=== PATIENT | female | born 1990 | race African-American/Black ===

== ENCOUNTER 2016-12-01 21:56 | Emergency (ER) | payer MEDICAID ==
[~2016-12-01] VITALS: Ht 170.2 cm; Wt 91.0 kg
[~2016-12-01 21:56] MED LIST: AZIT250T6 PO; IBUP-1509 PO
[2016-12-02] MEDS ORDERED: ONDANSETRON HCL 4MG/2ML VIAL IV STA (01:35)
[2016-12-02] MEDS ORDERED: SODIUM CHLORIDE 0.9% 1,000 ML IV ONE (01:35)
[2016-12-02] MEDS ORDERED: KETOROLAC 30MG/ML VIAL IV ONE (01:45)
[2016-12-02 01:55] LABS: CLARITY URINE CLEAR (CLEAR); COLOR URINE YELLOW (YELLOW); GLUCOSE URINE NEGATIVE (NEGATIVE); KETONES URINE TRACE (NEGATIVE); LEUKOCYTE ESTERASE URINE NEGATIVE (NEGATIVE); NITRITE URINE NEGATIVE (NEGATIVE); OCCULT BLOOD URINE NEGATIVE (NEGATIVE); PROTEIN URINE NEGATIVE (NEGATIVE); SPECIFIC GRAVITY URINE 1.023 (1.005-1.030); UROBILINOGEN URINE 0.2 E.U./dL (0.2-1.0)
[2016-12-02 02:11] LABS: CHLORIDE 105 mEq/L (98-107)
[2016-12-02 02:12] LABS: BASOPHILS % 0.6 % (0.0-2.0); EOSINOPHILS % 0.4 % (0.0-5.0); HEMATOCRIT. 33.4 % (36.0-48.0); LYMPHOCYTES % 17.7 % (20.0-50.0); MEAN CORPUSCULAR HEMOGLOBIN 24.6 pg (28.0-32.0); MEAN PLATELET VOLUME 9.9 fl (7.4-10.4); MONOCYTES % 6.7 % (2.0-8.0); NEUTROPHILS % 74.6 % (40.0-76.0); PLATELET 224 x1000/uL (130-400); RED BLOOD CELL COUNT 4.46 mill/uL (4.2-5.4); RED CELL DISTRIBUTION WIDTH 15.4 % (11.6-14.6)
[2016-12-02 02:15] LABS: HCG SCREEN NEGATIVE
[2016-12-02 02:19] LABS: CARBON DIOXIDE 26 mEq/L (21-32)
[2016-12-02] MEDS ORDERED: MORPHINE SULFATE 4 MG/ML CPJ (NOT FOR IM USE) IV PRN (05:15)
[2016-12-02 06:15] VITALS: BP 122/72
== END 2016-12-02 06:15 | disposition home or self-care (01) ==
LOC: ER 21:56
DX: R10.9 Unspecified abdominal pain (principal); J45.909 Unspecified asthma, uncomplicated; F17.200 Nicotine dependence, unspecified, uncomplicated; Z88.0 Allergy status to penicillin
CPT/HCPCS: 36415; 74000; 80053; 81003; 83690; 84703; 85025; 96361; 96374; 96375; 99285; J1885; J2270; J2405; J7030; Z7610

== ENCOUNTER 2018-10-24 16:42 | Emergency (ER) | payer MEDICAID ==
[~2018-10-24] VITALS: Ht 162.6 cm; Wt 68.0 kg
[~2018-10-24 16:42] MED LIST changes: +AZIT250T12 PO; -AZIT250T6 PO; -IBUP-1509 PO; +IBUP-2028 PO
[2018-10-24] MEDS ORDERED: IBUPROFEN 600MG TABLET PO ONE (17:15)
[2018-10-24 19:18] VITALS: BP 129/69
== END 2018-10-24 19:22 | disposition home or self-care (01) ==
LOC: ER 16:42
DX: N39.0 Urinary tract infection, site not specified (principal); R07.89 Other chest pain; R09.81 Nasal congestion; J04.0 Acute laryngitis; R05 Cough; I51.7 Cardiomegaly; R03.0 Elevated blood-pressure reading, without diagnosis of hypertension; Z88.0 Allergy status to penicillin; Z88.2 Allergy status to sulfonamides
CPT/HCPCS: 71045; 81025; 93005; 99283

== ENCOUNTER 2019-04-21 12:02 | Emergency (ER) | payer MEDICAID ==
[~2019-04-21] VITALS: Ht 167.6 cm; Wt 73.0 kg
[2019-04-21 12:05] VITALS: BP 120/75
[2019-04-21] MEDS ORDERED: LIDOCAINE HCL/PF 1% 10 MG/ML 5ML VIAL IJ ONE (13:15)
[2019-04-21] MEDS ORDERED: BACITRACIN ZINC OINT UDPKT TOP ONE (13:15)
[2019-04-21] MEDS: KETOROLAC 30MG/ML VIAL IM ONE (13:41)
== END 2019-04-21 14:53 | disposition home or self-care (01) ==
LOC: ER 12:02
DX: L02.411 Cutaneous abscess of right axilla (principal); F41.9 Anxiety disorder, unspecified; J45.909 Unspecified asthma, uncomplicated; Z90.49 Acquired absence of other specified parts of digestive tract; Z87.891 Personal history of nicotine dependence; F12.10 Cannabis abuse, uncomplicated; Z88.0 Allergy status to penicillin
CPT/HCPCS: 10060; 81025; 96372; 99283; J1885; J3490; Z7610

== ENCOUNTER 2019-04-23 11:49 | Emergency (ER) | payer MEDICAID ==
[~2019-04-23] VITALS: Ht 170.2 cm; Wt 71.0 kg
[2019-04-23 13:49] VITALS: BP 112/64
== END 2019-04-23 13:50 | disposition home or self-care (01) ==
LOC: ER 12:03
DX: G89.18 Other acute postprocedural pain (principal); Z48.01 Encounter for change or removal of surgical wound dressing; F41.9 Anxiety disorder, unspecified; J45.909 Unspecified asthma, uncomplicated; F12.10 Cannabis abuse, uncomplicated; Z90.49 Acquired absence of other specified parts of digestive tract; Z88.0 Allergy status to penicillin
CPT/HCPCS: 99283

== ENCOUNTER 2019-06-09 20:32 | Emergency (ER) | payer MEDICAID ==
[~2019-06-09] VITALS: Ht 170.2 cm; Wt 73.0 kg
[2019-06-10] MEDS ORDERED: LIDOCAINE HCL 1% 20ML VIAL (Pyxis) INJ INFIL ONE (02:45)
[2019-06-10] MEDS ORDERED: SULFAMETHOXAZOLE/TRIMETHOPRIM 800/160MG TABLET PO ONE (02:45)
[2019-06-10] MEDS ORDERED: IBUPROFEN 600MG TABLET PO ONE (02:45)
[2019-06-10 04:28] VITALS: BP 126/83
== END 2019-06-10 04:30 | disposition home or self-care (01) ==
LOC: ER 20:32
DX: L02.214 Cutaneous abscess of groin (principal); L03.314 Cellulitis of groin; J45.909 Unspecified asthma, uncomplicated; F12.10 Cannabis abuse, uncomplicated; Z90.49 Acquired absence of other specified parts of digestive tract; Z87.891 Personal history of nicotine dependence; Z88.0 Allergy status to penicillin
CPT/HCPCS: 46040; 87070; 87205; 99284; J3490; Z7610

== ENCOUNTER 2019-11-02 10:13 | Emergency (ER) | payer MEDICAID ==
[~2019-11-02] VITALS: Ht 170.2 cm; Wt 73.0 kg
[2019-11-02 10:25] VITALS: BP 130/86
[2019-11-02] MEDS ORDERED: ACETAMINOPHEN 500MG TABLET PO ONE (11:00)
== END 2019-11-02 11:37 | disposition home or self-care (01) ==
LOC: ER 10:13
DX: M25.531 Pain in right wrist (principal); I51.9 Heart disease, unspecified; F12.10 Cannabis abuse, uncomplicated; Z90.49 Acquired absence of other specified parts of digestive tract; Z88.0 Allergy status to penicillin
CPT/HCPCS: 73110; 99283

== ENCOUNTER 2019-12-15 12:20 | Emergency (ER) | payer MEDICAID ==
[~2019-12-15] VITALS: Ht 170.2 cm; Wt 68.1 kg
[2019-12-15 12:57] VITALS: BP 119/73
[2019-12-15] MEDS ORDERED: TETANUS, DIPHTHERIA, PERTUSSIS VAC/PF 0.5ML (>7YR OLD) IM ONE (13:30)
[2019-12-15] MEDS ORDERED: IBUPROFEN 600MG TABLET PO ONE (13:30)
== END 2019-12-15 14:22 | disposition home or self-care (01) ==
LOC: ER 12:20
DX: S00.83XA Contusion of other part of head, initial encounter (principal); S60.221A Contusion of right hand, initial encounter; S80.12XA Contusion of left lower leg, initial encounter; W18.39XA Other fall on same level, initial encounter; Y93.89 Activity, other specified; Y92.89 Other specified places as the place of occurrence of the external cause; Y99.8 Other external cause status; F41.9 Anxiety disorder, unspecified; J45.909 Unspecified asthma, uncomplicated; Z90.49 Acquired absence of other specified parts of digestive tract; F12.10 Cannabis abuse, uncomplicated; Z88.0 Allergy status to penicillin
CPT/HCPCS: 73130; 73590; 81025; 90471; 90715; 99284

== ENCOUNTER 2020-03-13 14:11 | Emergency (ER) | payer MEDICAID ==
[~2020-03-13] VITALS: Ht 167.6 cm; Wt 85.0 kg
[2020-03-13 14:24] VITALS: BP 130/74
== END 2020-03-13 17:27 | disposition left against medical advice (07) ==
LOC: ER 14:22
DX: Z53.21 Procedure and treatment not carried out due to patient leaving prior to being seen by health care provider (principal)
CPT/HCPCS: 93005

== ENCOUNTER → 2020-05-13 | Emergency (ER) | payer MEDICAID ==
[~2020-05-13] VITALS: Ht 170.2 cm; Wt 76.0 kg
[2020-05-13 14:55] LABS: BASOPHILS % 0.5 % (0.0-2.0); EOSINOPHILS % 1.1 % (0.0-5.0); HEMATOCRIT. 33.1 % (36.0-48.0); HEMOGLOBIN. 10.5 g/dL (12.0-16.0); LYMPHOCYTES % 20.6 % (20.0-50.0); MEAN CORPUSCULAR HEMOGLOBIN 22.1 pg (28.0-32.0); MEAN CORPUSCULAR VOLUME 69.8 fL (81.0-99.0); MEAN PLATELET VOLUME 8.3 fl (7.4-10.4); MONOCYTES % 7.8 % (2.0-8.0); PLATELET 211 x1000/uL (130-400); RED BLOOD CELL COUNT 4.74 mill/uL (4.2-5.4); RED CELL DISTRIBUTION WIDTH 18.3 % (11.6-14.6)
[2020-05-13 15:00] LABS: CLARITY URINE CLOUDY (CLEAR); COLOR URINE YELLOW (YELLOW); KETONES URINE NEGATIVE (NEGATIVE); LEUKOCYTE ESTERASE URINE 2+ (NEGATIVE); NITRITE URINE POSITIVE (NEGATIVE); OCCULT BLOOD URINE NEGATIVE (NEGATIVE); PH URINE 7.5 (4.5-8.0); PROTEIN URINE NEGATIVE (NEGATIVE); SPECIFIC GRAVITY URINE 1.019 (1.005-1.030); UROBILINOGEN URINE 0.2 E.U./dL (0.2-1.0)
[2020-05-13 15:02] LABS: CHLORIDE 106 mEq/L (98-107)
[2020-05-13 15:48] LABS: PLATELET ESTIMATE NORMAL
[2020-05-13 16:08] VITALS: BP 122/82
== END | disposition home or self-care (01) ==
LOC: ER 12:13
DX: R07.89 Other chest pain (principal); N30.00 Acute cystitis without hematuria; J45.909 Unspecified asthma, uncomplicated; F41.9 Anxiety disorder, unspecified; F12.10 Cannabis abuse, uncomplicated; Z90.49 Acquired absence of other specified parts of digestive tract; Z88.0 Allergy status to penicillin
CPT/HCPCS: 36415; 71045; 73560; 80053; 81003; 83880; 84484; 85025; 87077; 87186; 93005; 99285

== ENCOUNTER 2020-09-05 19:28 | Emergency (ER) | payer MEDICAID ==
[~2020-09-05] VITALS: Ht 170.2 cm; Wt 82.0 kg
[2020-09-05] MEDS ORDERED: IBUPROFEN 800MG TABLET PO ONE (21:30)
[2020-09-06 00:30] VITALS: BP 120/61
== END 2020-09-06 00:30 | disposition home or self-care (01) ==
LOC: ER 19:28
DX: M79.675 Pain in left toe(s) (principal); F17.200 Nicotine dependence, unspecified, uncomplicated; F12.10 Cannabis abuse, uncomplicated; J45.909 Unspecified asthma, uncomplicated; Z88.0 Allergy status to penicillin; Z88.1 Allergy status to other antibiotic agents; Z90.49 Acquired absence of other specified parts of digestive tract
CPT/HCPCS: 73630; 81025; 99283

== ENCOUNTER 2020-09-14 21:22 | Emergency (ER) | payer MEDICAID ==
[~2020-09-14] VITALS: Ht 172.7 cm; Wt 72.0 kg
[2020-09-14] MEDS ORDERED: ONDANSETRON HCL 4MG/2ML INJ IV STA (22:19)
[2020-09-14] MEDS ORDERED: MORPHINE SULFATE 4 MG/ML CPJ (NOT FOR IM USE) IV STA (22:19)
[2020-09-14] MEDS ORDERED: SODIUM CHLORIDE 0.9% 1,000 ML IV ONE (22:30)
[2020-09-14 23:07] LABS: BASOPHILS % 0.5 % (0.0-2.0); EOSINOPHILS % 1.2 % (0.0-5.0); HEMATOCRIT. 32.8 % (36.0-48.0); HEMOGLOBIN. 10.4 g/dL (12.0-16.0); LYMPHOCYTES % 12.7 % (20.0-50.0); MEAN CORPUSCULAR HEMOGLOBIN 22.8 pg (28.0-32.0); MEAN CORPUSCULAR VOLUME 72.1 fL (81.0-99.0); MEAN PLATELET VOLUME 9.7 fl (7.4-10.4); MONOCYTES % 9.1 % (2.0-8.0); NEUTROPHILS % 76.5 % (40.0-76.0); PLATELET 248 x1000/uL (130-400); RED BLOOD CELL COUNT 4.54 mill/uL (4.2-5.4); RED CELL DISTRIBUTION WIDTH 19.6 % (11.6-14.6)
[2020-09-14 23:08] LABS: CHLORIDE 109 mEq/L (98-107)
[2020-09-14 23:11] LABS: HCG SCREEN NEGATIVE
[2020-09-14 23:12] LABS: ETHANOL BLOOD < 10 mg/dL
[2020-09-15 01:16] LABS: CLARITY URINE CLOUDY (CLEAR); COLOR URINE ORANGE (YELLOW); KETONES URINE 2+ (NEGATIVE); LEUKOCYTE ESTERASE URINE TRACE (NEGATIVE); NITRITE URINE NEGATIVE (NEGATIVE); OCCULT BLOOD URINE 3+ (NEGATIVE); PH URINE 5.5 (4.5-8.0); PROTEIN URINE TRACE (NEGATIVE); SPECIFIC GRAVITY URINE 1.017 (1.005-1.030); UROBILINOGEN URINE 0.2 E.U./dL (0.2-1.0)
[2020-09-15] MEDS ORDERED: KETOROLAC 15MG/ML VIAL IV ONE (01:30)
[2020-09-15 01:34] LABS: *AMPHETAMINES SCREEN URINE NEGATIVE (NEGATIVE); *BARBITURATES SCREEN URINE NEGATIVE (NEGATIVE); *COCAINE SCREEN URINE NEGATIVE (NEGATIVE); METHADONE URINE SCREEN NEGATIVE (NEGATIVE)
[2020-09-15 01:35] LABS: PHENCYCLIDINE URINE SCREEN NEGATIVE (NEGATIVE)
[2020-09-15 01:42] LABS: *BENZODIAZEPINES SCREEN URINE PRESUMTIVE POSITIVE (NEGATIVE); CANNABINOID URINE SCREEN PRESUMTIVE POSITIVE (NEGATIVE); OPIATES URINE SCREEN PRESUMTIVE POSITIVE (NEGATIVE)
[2020-09-15] MEDS ORDERED: T3 PO (02:26)
[2020-09-15] MEDS ORDERED: ONDA4TAB5 MT (02:27)
[2020-09-15 03:16] VITALS: BP 118/69
== END 2020-09-15 03:16 | disposition home or self-care (01) ==
LOC: ER 21:22
DX: D25.9 Leiomyoma of uterus, unspecified (principal); F12.10 Cannabis abuse, uncomplicated; J45.909 Unspecified asthma, uncomplicated; Z90.49 Acquired absence of other specified parts of digestive tract; Z88.0 Allergy status to penicillin; Z79.899 Other long term (current) drug therapy
CPT/HCPCS: 36415; 74176; 80053; 80305; 80320; 81003; 83690; 84703; 85025; 93005; 96374; 96375; 99285; J1885; J2270; J2405; J7030; G0480

== ENCOUNTER 2020-09-17 10:14 | Emergency (ER) | payer MEDICAID ==
[~2020-09-17] VITALS: Ht 170.2 cm; Wt 84.0 kg
[~2020-09-17 10:14] MED LIST changes: +ONDA4TAB5 MT; +T3 PO
[2020-09-17] MEDS ORDERED: HYDROCODONE/ACETAMINOPHEN 5/325MG TABLET PO ONE (11:15)
[2020-09-17] MEDS ORDERED: IBUP-2030 MT (11:34)
[2020-09-17] MEDS ORDERED: HYDR-4346 MT (11:34)
[2020-09-17] MEDS ORDERED: DOXY100C2 MT (11:34)
[2020-09-17 11:52] VITALS: BP 127/82
== END 2020-09-17 11:53 | disposition home or self-care (01) ==
LOC: ER 10:14
DX: L02.412 Cutaneous abscess of left axilla (principal); F12.10 Cannabis abuse, uncomplicated; J45.909 Unspecified asthma, uncomplicated; Z88.0 Allergy status to penicillin; Z79.899 Other long term (current) drug therapy; Z90.49 Acquired absence of other specified parts of digestive tract
CPT/HCPCS: 10060; 81025; 99282

== ENCOUNTER 2021-01-08 18:58 | Emergency (ER) | payer MEDICAID ==
[~2021-01-08] VITALS: Ht 170.2 cm; Wt 85.0 kg
[~2021-01-08 18:58] MED LIST changes: +DOXY100C2 MT; +HYDR-4346 MT; +IBUP-2030 MT
[2021-01-08] MEDS ORDERED: HYDROCODONE/ACETAMINOPHEN 5/325MG TABLET PO NR (20:30)
[2021-01-08] MEDS ORDERED: DOXY100C2 MT (20:59)
[2021-01-08] MEDS ORDERED: IBUP-2029 MT (20:59)
[2021-01-08] MEDS ORDERED: DOXYCYCLINE HYCLATE 100MG CAPSULE PO ONE (21:00)
[2021-01-08 21:39] VITALS: BP 116/68
== END 2021-01-08 21:53 | disposition home or self-care (01) ==
LOC: ER 18:58
DX: L73.1 Pseudofolliculitis barbae (principal); F41.9 Anxiety disorder, unspecified; J45.909 Unspecified asthma, uncomplicated; D25.9 Leiomyoma of uterus, unspecified; F12.10 Cannabis abuse, uncomplicated; Z87.891 Personal history of nicotine dependence; Z90.49 Acquired absence of other specified parts of digestive tract; Z88.0 Allergy status to penicillin
CPT/HCPCS: 81025; 99283

== ENCOUNTER 2021-09-23 16:14 | Emergency (ER) | payer MEDICAID ==
[~2021-09-23] VITALS: Ht 170.2 cm; Wt 85.0 kg
[~2021-09-23 16:14] MED LIST changes: -DOXY100C2 MT; +DOXY100C5 MT; +IBUP-2029 MT
[2021-09-23 17:49] VITALS: BP 127/89
== END 2021-09-23 17:49 | disposition home or self-care (01) ==
LOC: ER 16:14
DX: M79.675 Pain in left toe(s) (principal); F12.10 Cannabis abuse, uncomplicated; J45.909 Unspecified asthma, uncomplicated; Z79.899 Other long term (current) drug therapy; Z88.0 Allergy status to penicillin; Z98.890 Other specified postprocedural states; Z90.49 Acquired absence of other specified parts of digestive tract
CPT/HCPCS: 73630; 99283

== ENCOUNTER 2021-12-09 12:03 | Emergency (ER) | payer MEDICAID ==
[~2021-12-09] VITALS: Ht 170.2 cm; Wt 77.0 kg
[2021-12-09 12:23] VITALS: BP 133/78
[2021-12-09 13:09] LABS: BASOPHILS % 1.2 % (0.0-2.0); EOSINOPHILS % 1.4 % (0.0-5.0); HEMATOCRIT. 34.4 % (36.0-48.0); HEMOGLOBIN. 10.9 g/dL (12.0-16.0); LYMPHOCYTES % 19.3 % (20.0-50.0); MEAN CORPUSCULAR HEMOGLOBIN 22.2 pg (28.0-32.0); MEAN CORPUSCULAR VOLUME 70.4 fL (81.0-99.0); MEAN PLATELET VOLUME 8.6 fl (7.4-10.4); MONOCYTES % 6.5 % (2.0-8.0); NEUTROPHILS % 71.6 % (40.0-76.0); PLATELET 293 x1000/uL (130-400); RED BLOOD CELL COUNT 4.89 mill/uL (4.2-5.4); RED CELL DISTRIBUTION WIDTH 19.3 % (11.6-14.6)
[2021-12-09 13:18] LABS: CHLORIDE 107 mEq/L (98-107)
[2021-12-09 13:33] LABS: B-HCG QUANTITATIVE < 1 mIU/mL (<3)
== END 2021-12-09 16:00 | disposition home or self-care (01) ==
LOC: ER 12:03
DX: D25.9 Leiomyoma of uterus, unspecified (principal); F12.10 Cannabis abuse, uncomplicated; J45.909 Unspecified asthma, uncomplicated; Z90.49 Acquired absence of other specified parts of digestive tract; Z88.0 Allergy status to penicillin; Z79.899 Other long term (current) drug therapy; Z98.890 Other specified postprocedural states
CPT/HCPCS: 36415; 76830; 76856; 80053; 81025; 84702; 85025; 86850; 86900; 99284

== ENCOUNTER 2022-09-29 19:02 | Emergency (ER) | payer MEDICAID ==
[~2022-09-29] VITALS: Ht 170.2 cm; Wt 92.0 kg
[2022-09-29] MEDS ORDERED: GUAIFENESIN 600MG ER TABLET PO ONE (20:00)
[2022-09-29] MEDS ORDERED: CLINDAMYCIN HCL 150MG CAPSULE PO ONE (20:00)
[2022-09-29] MEDS ORDERED: ACET-2708 MT (20:02)
[2022-09-29] MEDS ORDERED: AZIT250T12 MT (20:02)
[2022-09-29] MEDS ORDERED: GUAI600T26 MT (20:02)
[2022-09-29] MEDS ORDERED: AZITHROMYCIN 250 MG TABLET PO ONE (20:15)
[2022-09-29 20:42] VITALS: BP 112/75
== END 2022-09-29 20:43 | disposition home or self-care (01) ==
LOC: ER 19:02
DX: J32.8 Other chronic sinusitis (principal); B96.89 Other specified bacterial agents as the cause of diseases classified elsewhere; J45.909 Unspecified asthma, uncomplicated; F41.9 Anxiety disorder, unspecified; F12.90 Cannabis use, unspecified, uncomplicated; Z88.0 Allergy status to penicillin; Z88.1 Allergy status to other antibiotic agents
CPT/HCPCS: 99283

== ENCOUNTER 2023-11-03 08:40 | Emergency (ER) | payer MEDICAID ==
[~2023-11-03] VITALS: Ht 177.8 cm; Wt 90.0 kg
[~2023-11-03 08:40] MED LIST changes: +ACET-2708 MT; +AZIT250T12 MT; +GUAI600T26 MT; +LEVO750T68 MT; +NITR-87 MT; +ONDA4TAB50 MT
[2023-11-03 08:53] VITALS: O2SAT 100
[2023-11-03] MEDS ORDERED: IBUP-2029 MT (10:23)
[2023-11-03 10:31] VITALS: BP 119/62; PULSE 80; RESP 20; TEMP 98.7
== END 2023-11-03 11:10 | disposition home or self-care (01) ==
LOC: ER 09:16
DX: S60.032A Contusion of left middle finger without damage to nail, initial encounter (principal); F12.10 Cannabis abuse, uncomplicated; J45.909 Unspecified asthma, uncomplicated; Z88.0 Allergy status to penicillin; Z79.899 Other long term (current) drug therapy; Z98.890 Other specified postprocedural states; Z90.49 Acquired absence of other specified parts of digestive tract
CPT/HCPCS: 29130; 73130; 81025; 99283

== ENCOUNTER 2024-06-05 15:12 | Emergency (ER) | payer SELFPAY ==
[~2024-06-05] VITALS: Ht 170.2 cm; Wt 98.0 kg
[2024-06-05 16:07] VITALS: BP 125/78; PULSE 80; RESP 16; TEMP 98.3; O2SAT 98
== END 2024-06-05 19:12 | disposition left against medical advice (07) ==
LOC: ER 15:12
DX: M79.642 Pain in left hand (principal); F41.9 Anxiety disorder, unspecified; Z98.890 Other specified postprocedural states; Z53.21 Procedure and treatment not carried out due to patient leaving prior to being seen by health care provider